=== PATIENT | female | born 1945 | race Caucasian/White ===

== ENCOUNTER 2022-05-11 22:41 | Inpatient (IN) | payer MEDICARE, BC ==
[2022-05-11 22:58] VITALS: BMI 19.4
[2022-05-11] MEDS ORDERED: Ondansetron PF 4 MG/2 ML Vial IVP PRN (23:36)
[2022-05-11] MEDS ORDERED: Senokot S 8.6-50 MG TAB PO PRN (23:36)
[2022-05-11] MEDS ORDERED: Calcium Carbonate 500 MG ChewTAB PO PRN (23:36)
[2022-05-11] MEDS ORDERED: Guaifenesin DM 100-10/5 ML UDCUP PO PRN (23:36)
[2022-05-11] MEDS: Amiodarone In Dextrose 360 MG in Premix Bag 1 BAG IVPB SCH (23:55)
[2022-05-11] MEDS ORDERED: Potassium Chloride 20 MEQ TAB PO SCH (23:59)
[2022-05-12] MEDS ORDERED: traMADol HCl 50 MG TAB PO PRN
[2022-05-12] MEDS: Melatonin 3 MG TAB PO PRN ×2 (00:26→21:01)
[2022-05-12 00:27] LABS: Magnesium 2.2 mg/dL (1.6-2.6)
[2022-05-12] MEDS ORDERED: Amiodarone 150 MG in Dextrose 5% in Water 100 ML IVPB SCH (00:30)
[2022-05-12] MEDS: Amiodarone In Dextrose 360 MG in Premix Bag 1 BAG IVPB SCH ×4 (00:40→17:14)
[2022-05-12 04:54] LABS: CKMB 7.9 ng/mL (0-6.6)
[2022-05-12 04:55] LABS: Anion Gap 13 mmol/L (10-20); BUN (Urea Nitrogen) 13 mg/dL (9.8-20.1); Calc. Creatinine Clearance 75 mL/min (70-130); Calcium 8.1 mg/dL (7.8-10.44); Carbon Dioxide 22 mmol/L (23-31); Chloride 110 mmol/L (98-107); Estimated GFR 94; Glucose 112 mg/dL (83-110); Magnesium 2.2 mg/dL (1.6-2.6); Potassium 3.6 mmol/L (3.5-5.1); Sodium 141 mmol/L (136-145)
[2022-05-12 05:10] LABS: CKMB 5.9 ng/mL (0-6.6)
[2022-05-12 05:13] LABS: #Eosinphils 0.1 10x3/uL (0.0-0.5); #Monocytes 0.6 10x3/uL (0.0-1.1); #Neutrophils 4.3 10x3/uL (1.5-8.4); %Basophils 0.5 % (0.0-2.0); %Lymphocytes 13.3 % (18.0-47.0); %Monocytes 9.9 % (0.0-10.0); Hemoglobin 11.5 g/dL (12.0-15.5); Mean Corpuscular HGB CONC 33.9 g/dL (32.0-36.0); Mean Corpuscular Hemoglobin 33.4 pg (27.0-33.0); Mean Corpuscular Volume 98.5 fl (81.6-98.3); Mean Platelet Volume 9.8 fl (7.4-10.4); Platelet Count 283 10x3/uL (150-450); RBC Distribution Width 15.9 % (11.5-14.5); Red Blood Cell (RBC) Count 3.44 10x6/uL (3.90-5.03); White Blood Cell (WBC) Count 5.8 10x3/uL (3.5-10.5)
[2022-05-12] MEDS: Levothyroxine Sodium 100 MCG TAB PO SCH (05:38)
[2022-05-12] MEDS: Carvedilol 3.125 MG TAB PO SCH ×2 (07:47→16:17)
[2022-05-12] MEDS ORDERED: Carvedilol 12.5 MG TAB PO SCH (09:00)
[2022-05-12] MEDS ORDERED: RESVERATROL PO SCH (09:00)
[2022-05-12] MEDS ORDERED: [UNRECOGNIZED DRUG - OTHER] PO SCH (09:00)
[2022-05-12] MEDS ORDERED: GRAPE SKIN EXTRACT PO SCH (09:00)
[2022-05-12] MEDS ORDERED: Lisinopril 2.5 MG TAB PO SCH (09:00)
[2022-05-12] MEDS: Multivit, Therapeutic 1 TAB PO SCH (09:06)
[2022-05-12] MEDS: CO Q-10 CAPSULE 50 MG PO SCH (09:06)
[2022-05-12] MEDS: Famotidine 20 MG TAB PO SCH ×2 (09:06→19:43)
[2022-05-12] MEDS: Aspirin 81 mg Enteric Coated Tablet PO SCH (09:06)
[2022-05-12] MEDS: Furosemide 40 MG TAB PO SCH (09:10)
[2022-05-12] MEDS: Spironolactone 25 MG TAB PO SCH (09:10)
[2022-05-12] MEDS: Fish Oil 1,000 MG CAP PO SCH (09:21)
[2022-05-12] MEDS: Calcium Carbonate 600 MG TAB PO SCH (09:21)
[2022-05-12] MEDS: Oxybutynin 5 MG TAB PO SCH (09:21)
[2022-05-12] MEDS: Fluticasone Propionate Nasal Spray 16 gm Bottle NASAL SCH (09:22)
[2022-05-12] MEDS: Acetaminophen 325 MG TAB PO PRN (19:43)
[2022-05-12] MEDS: HYDROcodone/Acetaminophen 5/325 mg Tablet PO PRN (21:00)
[2022-05-13] MEDS: Amiodarone In Dextrose 360 MG in Premix Bag 1 BAG IVPB SCH ×3 (00:59→14:36)
[2022-05-13 04:18] LABS: Anion Gap 16 mmol/L (10-20); BUN (Urea Nitrogen) 14 mg/dL (9.8-20.1); Calc. Creatinine Clearance 61 mL/min (70-130); Calcium 8.8 mg/dL (7.8-10.44); Carbon Dioxide 22 mmol/L (23-31); Chloride 106 mmol/L (98-107); Estimated GFR 89; Glucose 116 mg/dL (83-110); Potassium 3.6 mmol/L (3.5-5.1); Sodium 140 mmol/L (136-145)
[2022-05-13] MEDS: Levothyroxine Sodium 100 MCG TAB PO SCH (05:25)
[2022-05-13] MEDS: HYDROcodone/Acetaminophen 5/325 mg Tablet PO PRN ×2 (05:57→10:52)
[2022-05-13] MEDS: Carvedilol 3.125 MG TAB PO SCH ×2 (07:47→17:04)
[2022-05-13] MEDS: Fluticasone Propionate Nasal Spray 16 gm Bottle NASAL SCH (08:49)
[2022-05-13] MEDS: Oxybutynin 5 MG TAB PO SCH (08:50)
[2022-05-13] MEDS: Furosemide 40 MG TAB PO SCH (08:50)
[2022-05-13] MEDS: Aspirin 81 mg Enteric Coated Tablet PO SCH (08:51)
[2022-05-13] MEDS: Famotidine 20 MG TAB PO SCH ×2 (08:53→20:17)
[2022-05-13] MEDS: Multivit, Therapeutic 1 TAB PO SCH (08:53)
[2022-05-13] MEDS: Spironolactone 25 MG TAB PO SCH (08:53)
[2022-05-13] MEDS: CO Q-10 CAPSULE 50 MG PO SCH (08:54)
[2022-05-13] MEDS: Calcium Carbonate 600 MG TAB PO SCH (08:54)
[2022-05-13] MEDS: Fish Oil 1,000 MG CAP PO SCH (08:55)
[2022-05-13] MEDS: Acetaminophen 325 MG TAB PO PRN (10:08)
[2022-05-13] MEDS ORDERED: Acetaminophen/Codeine 30-300mg Tablet PO PRN (11:54)
[2022-05-13] MEDS ORDERED: traMADol HCl 50 MG TAB PO PRN (11:54)
[2022-05-13] MEDS ORDERED: Lidocaine 5% Patch TD SCH (14:00)
[2022-05-13] MEDS: Magnesium Oxide 400 MG TAB PO SCH (20:17)
[2022-05-13] MEDS: Apixaban 5 MG TAB PO SCH (20:17)
[2022-05-13] MEDS: Amiodarone 450 MG, Admixture Fee 1 EACH in Dextrose 5% in Water 250 ML IVPB SCH (21:17)
[2022-05-14] MEDS ORDERED: Transdermal Patch Removal TOP SCH (02:00)
[2022-05-14] MEDS: Acetaminophen 325 MG TAB PO PRN (03:15)
[2022-05-14] MEDS: Amiodarone 450 MG, Admixture Fee 1 EACH in Dextrose 5% in Water 250 ML IVPB SCH (05:21)
[2022-05-14 05:49] VITALS: TEMP 97.9
[2022-05-14] MEDS ORDERED: Levothyroxine Sodium 100 MCG TAB PO SCH (06:00)
[2022-05-14] MEDS ORDERED: Levothyroxine Sodium 75 MCG TAB PO SCH (06:00)
[2022-05-14] MEDS: Aspirin 81 mg Enteric Coated Tablet PO SCH (08:39)
[2022-05-14] MEDS: Spironolactone 25 MG TAB PO SCH (08:39)
[2022-05-14] MEDS: Carvedilol 3.125 MG TAB PO SCH (08:39)
[2022-05-14] MEDS: Furosemide 40 MG TAB PO SCH (08:40)
[2022-05-14] MEDS: Famotidine 20 MG TAB PO SCH (08:41)
[2022-05-14] MEDS: Apixaban 5 MG TAB PO SCH (08:41)
[2022-05-14] MEDS: Oxybutynin 5 MG TAB PO SCH (08:42)
[2022-05-14] MEDS: Calcium Carbonate 600 MG TAB PO SCH (08:43)
[2022-05-14] MEDS: Multivit, Therapeutic 1 TAB PO SCH (08:43)
[2022-05-14] MEDS: Magnesium Oxide 400 MG TAB PO SCH (08:44)
[2022-05-14] MEDS: CO Q-10 CAPSULE 50 MG PO SCH (08:45)
[2022-05-14] MEDS: Fish Oil 1,000 MG CAP PO SCH (08:47)
[2022-05-14] MEDS: Fluticasone Propionate Nasal Spray 16 gm Bottle NASAL SCH (08:55)
[2022-05-14] MEDS ORDERED: ELDERBERRY FRUIT AND FLOWER PO SCH (09:00)
[2022-05-14] MEDS ORDERED: Lisinopril 2.5 MG TAB PO SCH (09:00)
[2022-05-14] MEDS ORDERED: Amiodarone 200 MG TAB PO SCH (09:00)
[2022-05-14] MEDS ORDERED: [UNRECOGNIZED DRUG - OTHER] PO SCH (09:00)
[2022-05-14 13:21] VITALS: BP 98/70
== END 2022-05-14 13:50 | disposition home or self-care (01) | DRG 280 ==
LOC: CSHIMCU 22:41
PROVIDERS: ADMIT Student in an Organized Health Care Education/Training Program; ATTEND Hospitalist
DX: I47.20 Ventricular tachycardia, unspecified (principal); I50.23 Acute on chronic systolic (congestive) heart failure; I21.A1 Myocardial infarction type 2; I42.0 Dilated cardiomyopathy; M19.90 Unspecified osteoarthritis, unspecified site; M81.0 Age-related osteoporosis without current pathological fracture; E03.9 Hypothyroidism, unspecified; N32.81 Overactive bladder; M32.9 Systemic lupus erythematosus, unspecified; I25.10 Atherosclerotic heart disease of native coronary artery without angina pectoris; I48.0 Paroxysmal atrial fibrillation; I48.92 Unspecified atrial flutter; Z88.0 Allergy status to penicillin; Z88.2 Allergy status to sulfonamides; Z88.8 Allergy status to other drugs, medicaments and biological substances; Z79.01 Long term (current) use of anticoagulants; Z79.82 Long term (current) use of aspirin; Z79.899 Other long term (current) drug therapy; Z95.810 Presence of automatic (implantable) cardiac defibrillator; Z98.890 Other specified postprocedural states
CPT/HCPCS: 36415; 71045; 80048; 82553; 83735; 83880; 84443; 84484; 85025; 93005; 93010; 93306; 94760; 96365; 96366; 96372; J0282; J0283; J1650; J7070; U0002

== ENCOUNTER 2024-04-20 13:25 | Emergency (ER) | payer MEDICARE ==
[2024-04-20] MEDS ORDERED: Acetaminophen 325 MG TAB ONE (14:31)
== END 2024-04-20 16:07 | disposition home or self-care (01) ==
LOC: CSHERS 13:25
DX: S42.031A Displaced fracture of lateral end of right clavicle, initial encounter for closed fracture (principal); I10 Essential (primary) hypertension; I48.92 Unspecified atrial flutter; G89.29 Other chronic pain; M54.2 Cervicalgia; W18.30XA Fall on same level, unspecified, initial encounter; Y93.89 Activity, other specified; Z95.0 Presence of cardiac pacemaker
CPT/HCPCS: 70450; 72125